=== PATIENT | female | born 1995 | race Caucasian/White ===

== ENCOUNTER 2018-07-29 22:10 | Observation (INO) | payer BC ==
[2018-07-29] MEDS ORDERED: KETOROLAC 30 MG/1 ML SDV IVP ONE (22:46)
[2018-07-29] MEDS ORDERED: ONDANSETRON 4 MG/2 ML VIAL IVP ONE (22:46)
[2018-07-29] MEDS ORDERED: NS 1,000 ML IV ONE (22:46)
--- NOTE | 2018-07-29 22:52 | EDPHY ---
H & P Stated Complaint: abd pain, vomiting Time Seen by Provider: 07/29/18 22:34 HPI/ROS: HPI The patient presents with abdominal pain which began at about 8:40 p.m. Tonight and came on fairly suddenly. The pain was initially diffuse and sharp in her lower abdomen, however now radiates throughout her abdomen and is more dull. The pain has been constant. She tried taking Tums and Pepto-Bismol with no improvement in her symptoms. She has had 2 episodes of vomiting which have caused a slight improvement in her symptoms. She has not had any fevers or chills. She had 2 normal bowel movements today. She has not had any vaginal bleeding. She does have a history of ovarian torsion requiring oophorectomy, however unsure which ovary was removed. She has a history of constipation.. REVIEW OF SYSTEMS 10 systems were reviewed and negative with the exception of the elements mentioned in the history of present illness. PMHx: History of oophorectomy, history of constipation Soc Hx: Here with her brother PHYSICAL General Appearance: Alert, no distress Eyes: Pupils equal and round no pallor or injection ENT, Mouth: Mucous membranes moist Respiratory: There are no retractions, lungs are clear to auscultation Cardiovascular: Regular rate and rhythm Gastrointestinal: Abdomen is soft and tender in periumbilical region and right lower quadrant, no masses, bowel sounds normal Neurological: A&O, moves all extremities Skin: Warm and dry, no rashes Musculoskeletal: Neck is supple non tender Extremities: symmetrical, full range of motion Psychiatric: Patient is oriented X 3, there is no agitation Source: Patient Exam Limitations: No limitations - Personal History LMP (Females 10-55): 1-7 Days Ago Current Tetanus Diphtheria and Acellular Pertussis (TDAP): Yes - Medical/Surgical History Hx Asthma: Yes Hx Chronic Respiratory Disease: No Hx Diabetes: No Hx Cardiac Disease: No Hx Renal Disease: No Hx Cirrhosis: No Hx Alcoholism: No Hx HIV/AIDS: No Hx Splenectomy or Spleen Trauma: No Other PMH: lost one ovary - Social History Smoking Status: Never smoked Constitutional: Initial Vital Signs Temperature (C) 36.8 C 07/29/18 22:14 Heart Rate 115 H 07/29/18 22:14 Respiratory Rate 20 07/29/18 22:14 Blood Pressure 114/71 07/29/18 22:14 O2 Sat (%) 97 09/21/18 22:14 Allergies/Adverse Reactions: No Known Allergies Allergy (Unverified 07/29/18 22:14) Home Medications: Medication Instructions Recorded Acetaminophen [Tylenol 325mg (*)] 650 mg PO Q4HRS PRN tab 07/30/18 Hydrocodone/APAP 5/325 [Vevay 1 - 2 tab PO Q4HRS PRN #15 tab 07/30/18 5/325 (*)] Medical Decision Making - Diagnostics Imaging Results: Imaging Impressions Abdomen Ultrasound 07/29/18 22:47 Impression: Acute appendicitis. Findings and recommendations discussed with Emergency Department physician, Maeve Wright MD at 23:25 hour, 07/29/2018. Final report concurs with initial preliminary interpretation. Imaging: Discussed imaging studies w/ cold roll inspector Radiologist, I viewed and interpreted images myself Differential Diagnosis: This is a 22-year-old female, history of unilateral oophorectomy, laterality unknown, presents with several hours of lower abdominal pain associated with vomiting. Differential diagnosis includes appendicitis, ovarian torsion, constipation, gastroenteritis. In the emergency department, labs were obtained which did demonstrate leukocytosis and transaminitis. Ultrasound of her right lower quadrant demonstrated findings consistent with acute appendicitis. I consulted with Dr. Stubbs who is the on-call general surgeon. He will see the patient. I have ordered antibiotics for the patient. The patient will be admitted to the hospital with plans for the operating room later today. She was updated on this plan. - Data Points Laboratory Results: Laboratory Results 07/29/18 23:00 07/29/18 23:00 07/29/18 07/29/18 07/29/18 23:33 23:00 23:00 WBC RBC Hgb Hct MCV MCH MCHC RDW Plt Count MPV Neut % (Auto) Lymph % (Auto) [place] % (Auto) Eos % (Auto) Baso % (Auto) Nucleat RBC Rel Count Absolute Neuts (auto) Absolute Lymphs (auto) Absolute Monos (auto) Absolute Eos (auto) Absolute Basos (auto) Absolute Nucleated RBC Immature Gran % Immature Gran # Sodium 137 mEq/L mEq/L (135-145) Potassium 3.9 mEq/L mEq/L (3.3-5.0) Chloride 102 mEq/L mEq/L (97-110) Carbon Dioxide 25 mEq/l mEq/l (22-31) Anion Gap 10 mEq/L mEq/L (8-16) BUN 13 mg/dL mg/dL (7-23) Creatinine 0.6 mg/dL mg/dL (0.6-1.0) Estimated GFR > 60 Glucose 78 mg/dL mg/dL (70-100) Calcium 9.9 mg/dL mg/dL (8.5-10.4) Total Bilirubin 0.6 mg/dL mg/dL (0.1-1.4) Conjugated Bilirubin 0.1 mg/dL mg/dL (0.0-0.5) Unconjugated Bilirubin 0.5 mg/dL mg/dL (0.0-1.1) AST 47 IU/L H IU/L (14-46) ALT 76 IU/L H IU/L (9-52) Alkaline Phosphatase 90 IU/L IU/L (38-126) Total Protein 7.6 g/dL g/dL (6.3-8.2) Albumin 4.6 g/dL g/dL (3.5-5.0) Beta HCG, Qual NEGATIVE Urine Color YELLOW Urine Appearance CLEAR Urine pH 8.0 H (5.0-7.5) Ur Specific [place] 1.013 (1.002-1.030) Urine Protein NEGATIVE (NEGATIVE) Urine Ketones TRACE H (NEGATIVE) Urine Blood NEGATIVE (NEGATIVE) Urine Nitrate NEGATIVE (NEGATIVE) Urine Bilirubin NEGATIVE (NEGATIVE) Urine Urobilinogen NEGATIVE EU EU (0.2-1.0) Ur Leukocyte Esterase NEGATIVE (NEGATIVE) Urine Glucose NEGATIVE (NEGATIVE) 07/29/18 23:00 WBC 21.85 10^3/uL H 10^3/uL (3.80-9.50) RBC 5.17 10^6/uL 10^6/uL (4.18-5.33) Hgb 13.7 g/dL g/dL (12.6-16.3) Hct 39.1 % % (38.0-47.0) MCV 75.6 fL L fL (81.5-99.8) MCH 26.5 pg L pg (27.9-34.1) MCHC 35.0 g/dL g/dL (32.4-36.7) RDW 12.8 % % (11.5-15.2) Plt Count 357 10^3/uL 10^3/uL (150-400) MPV 9.7 fL fL (8.7-11.7) Neut % (Auto) 80.5 % H % (39.3-74.2) Lymph % (Auto) 13.0 % L % (15.0-45.0) [place] % (Auto) 4.3 % L % (4.5-13.0) Eos % (Auto) 1.4 % % (0.6-7.6) Baso % (Auto) 0.4 % % (0.3-1.7) Nucleat RBC Rel Count 0.0 % % (0.0-0.2) Absolute Neuts (auto) 17.61 10^3/uL H 10^3/uL (1.70-6.50) Absolute Lymphs (auto) 2.84 10^3/uL 10^3/uL (1.00-3.00) Absolute Monos (auto) 0.94 10^3/uL H 10^3/uL (0.30-0.80) Absolute Eos (auto) 0.30 10^3/uL 10^3/uL (0.03-0.40) Absolute Basos (auto) 0.08 10^3/uL 10^3/uL (0.02-0.10) Absolute Nucleated RBC 0.00 10^3/uL 10^3/uL (0-0.01) Immature Gran % 0.4 % % (0.0-1.1) Immature Gran # 0.08 10^3/uL 10^3/uL (0.00-0.10) Sodium Potassium Chloride Carbon Dioxide Anion Gap BUN Creatinine Estimated GFR Glucose Calcium Total Bilirubin Conjugated Bilirubin Unconjugated Bilirubin AST ALT Alkaline Phosphatase Total Protein Albumin Beta HCG, Qual Urine Color Urine Appearance Urine pH Ur Specific [place] Urine Protein Urine Ketones Urine Blood Urine Nitrate Urine Bilirubin Urine Urobilinogen Ur Leukocyte Esterase Urine Glucose Medications Given: Discontinued Medications Bupivacaine HCl/Epinephrine Bitart (Bupivacaine/Epi) Confirm Administered Dose 30 ml .ROUTE .STK-MED ONE Stop: 07/30/18 00:08 Last Admin: 07/30/18 01:17 Dose: 30 ml Sodium Chloride (Ns) 1,000 mls @ 0 mls/hr IV EDNOW ONE; Wide Open PRN Reason: Protocol Stop: 07/29/18 22:47 Last Admin: 07/29/18 23:13 Dose: 1,000 mls Ceftriaxone Sodium/Dextrose (Rocephin 1 Gm (Premix)) 50 mls @ 100 mls/hr IV EDNOW ONE PRN Reason: Protocol Stop: 07/30/18 00:15 Last Admin: 07/29/18 23:46 Dose: 50 mls Metronidazole/Sodium Chloride (Flagyl 500 Mg (Premix)) 100 mls @ 100 mls/hr IV EDNOW ONE PRN Reason: Protocol Stop: 07/30/18 00:46 Last Admin: 07/30/18 00:20 Dose: 100 mls Ketorolac Tromethamine (Toradol) 15 mg IVP EDNOW ONE Stop: 07/29/18 22:47 Last Admin: 07/29/18 23:14 Dose: 15 mg Ondansetron HCl (Zofran) 4 mg IVP EDNOW ONE Stop: 07/29/18 22:47 Last Admin: 07/29/18 23:13 Dose: 4 mg Departure - Departure Disposition: [facility] Inpatient Acute Clinical Impression: Acute appendicitis Qualifiers: Acute appendicitis type: with generalized peritonitis Qualified Code(s): K35.2 - Acute appendicitis with generalized peritonitis; K35.0 - Acute appendicitis with generalized peritonitis Condition: Good
[2018-07-29 23:17] LABS: PLATELET COUNT 357 10^3/uL (150-400)
[2018-07-30] MEDS ORDERED: BUPIVACAINE/EPI 0.5% 30 ML SDV ONE (00:07)
[2018-07-30] MEDS ORDERED: HYDROCODONE/APAP 5/325 TAB PO PRN (00:21)
[2018-07-30] MEDS ORDERED: HYDROmorphONE/DILAUDID 1 MG/ML INJ IVP PRN (00:21)
[2018-07-30] MEDS ORDERED: ONDANSETRON 4 MG/2 ML VIAL IVP PRN ×2 (00:21→01:44)
[2018-07-30] MEDS ORDERED: ACETAMINOPHEN 325 MG TAB PO PRN (00:21)
[2018-07-30] MEDS ORDERED: LR 1,000 ML IV SCH (00:30)
--- NOTE | 2018-07-30 00:32 | POSTOPPROG ---
Post Op Note Date of Operation: 07/30/18 Surgeon: Aguila Stubbs Anesthesiologist: Leroy Almendarez Anesthesia: GET(General Endotracheal) Pre-op Diagnosis: Acute appendicitis Post-op Diagnosis: Same Procedure: Lap Appy Findings: suppurative appendix Inf/Abcess present in the surg proc area at time of surgery?: Yes Depth: Organ Space EBL: Minimal Complications: no immediate Specimen(s): appendix
[2018-07-30] MEDS ORDERED: METOCLOPRAMIDE 10 MG/2 ML VIAL ONE (00:50)
[2018-07-30] MEDS ORDERED: DEXAMETHASONE 4 MG/ML VIAL ONE ×2 (00:50)
[2018-07-30] MEDS ORDERED: LIDOCAINE 2% 100 MG/5 ML SYR ONE (00:50)
[2018-07-30] MEDS ORDERED: fentaNYL 250 MCG/5 ML INJ ONE (00:50)
[2018-07-30] MEDS ORDERED: PROPOFOL 200 MG/20 ML VIAL ONE (00:50)
[2018-07-30] MEDS ORDERED: ROCURONIUM 50 MG/5 ML VIAL ONE (00:50)
--- NOTE | 2018-07-30 01:00 | GHP ---
DATE OF ADMISSION: 07/30/2018 REASON FOR EVALUATION: Appendicitis. REQUESTING PHYSICIAN: Maeve Wright M.D. INDICATIONS: 22-year-old healthy female with a 1-day history of sudden onset of epigastric pain with gradual localization starting approximately 8:30 this evening while eating at the Med. Multiple episodes of nausea and vomiting. No diarrhea. Associated chills. No fevers. One prior history of similar complaints, age 17, related to an ovarian torsion. This required RIGHT oophorectomy at that time. She denies similar intermenstrual-type pains. She presented to the emergency room because of worsening symptoms. She was found to have noncompressible tubular structure in the right lower quadrant on ultrasonography with the exam consistent with appendicitis. Surgery has been requested for further recommendations. PAST MEDICAL HISTORY: Asthma. PAST SURGICAL HISTORY: Laparoscopic RIGHT oophorectomy, tonsillectomy with adenoidectomy. MEDICATIONS: Oral contraceptives. ALLERGIES: No known drug allergies. SOCIAL HISTORY: No significant alcohol or tobacco. She is a [employer]. FAMILY HISTORY: Notable for multiple members with acute appendicitis. REVIEW OF SYSTEMS: Negative 12-point review other than acute GI complaints. PHYSICAL EXAM: Patient is alert, appropriate, comfortable. VITAL SIGNS: Temperature 36.8, blood pressure 114/70, heart rate 115, respirations 20. HEENT : Anicteric. No cervical lymphadenopathy. HEART: Regular. LUNGS: Clear without wheezes. ABDOMEN: Soft, with focal right lower quadrant tenderness with mild guarding. Positive Rovsing sign. Positive obturator sign. Negative psoas sign. EXTREMITIES: Without edema. NEUROLOGIC: Alert and appropriate. SKIN: Without rashes. LABORATORY DATA: White count 22, hemoglobin 14, platelets 360. Electrolytes within reference range. Liver enzymes with mild transaminitis with AST 47, ALT 76. test negative. Urinalysis unremarkable. Right lower quadrant ultrasonography with a noncompressible tubular structure measuring up to 12 mm with free fluid. IMPRESSION: Early appendicitis. PLAN: Laparoscopic appendectomy. Risks and benefits were explained, including bleeding, infection, open conversion, as well as alternative diagnoses. All questions were answered. She desires to proceed. /[id number]/MODL MTDD
[2018-07-30] MEDS ORDERED: NEOSTIGMINE METHYLSULFATE 5 MG/5 ML SYR ONE (01:15)
[2018-07-30] MEDS ORDERED: GLYCOPYRROLATE 0.2 MG/1 ML VIAL ONE ×2 (01:15)
--- NOTE | 2018-07-30 01:43 | PDANEPAE ---
ANE Past Medical History - Pulmonary History Hx Oxygen in Use at Home: No - Endocrine History Hx Diabetes: No ANE Review of Systems Review of Systems: ANE Patient History - Allergies Allergies/Adverse Reactions: No Known Allergies Allergy (Unverified 07/29/18 22:14) - NPO status NPO Since - Liquids (Date): 07/29/18 NPO Since - Liquids (Time): 22:00 NPO Since - Solids (Date): 07/29/18 NPO Since - Solids (Time): 20:00 - Smoking Hx Smoking Status: Never smoked ANE Labs/Vital Signs - Labs Result Diagrams: 07/29/18 23:00 07/29/18 23:00 - Vital Signs Blood Pressure: 121/76 Heart Rate: 66 Respiratory Rate: 16 O2 Sat (%): 96 Height: 157.48 cm Weight: 63.503 kg ANE Physical Exam - Airway Neck exam: FROM Mallampati Score: Class 2 Mouth exam: normal dental/mouth exam - Pulmonary Pulmonary: no respiratory distress - Cardiovascular Cardiovascular: regular rate and rhythym - ASA Status ASA Status: II ANE Anesthesia Plan Anesthesia Plan: general endotracheal anesthesia
[2018-07-30] MEDS ORDERED: fentaNYL 100 MCG/2 ML INJ IVP PRN (01:44)
[2018-07-30] MEDS ORDERED: ALBUTEROL 3 ML DEYVIAL IH PRN (01:44)
[2018-07-30] MEDS ORDERED: NALOXONE HCL 0.4 MG/ML INJ IVP PRN (01:44)
--- NOTE | 2018-07-30 01:44 | POSTANESTH ---
Post Anesthetic Evaluation Cardiovascular Status: Similar to Pre-Op Cond Respiratory Status: Similar to Pre-op Cond. Level of Consciousness/Mental Status: Alert and Oriented Pain Control: Adequate, Prn Tx Ordered Nausea/Vomiting Control: Adequate, Prn Tx Ordered Complications Possibly Related to Anesthesia: None Noted
--- NOTE | 2018-07-30 02:00 | GOP ---
DATE OF OPERATION: 07/30/2018 SURGEON: Aguila Stubbs MD ANESTHESIA: General. ANESTHESIOLOGIST: Dr. Almendarez. PREOPERATIVE DIAGNOSIS: Acute appendicitis. POSTOPERATIVE DIAGNOSIS: Acute appendicitis. PROCEDURE PERFORMED: Laparoscopic appendectomy. FINDINGS: Suppurative appendicitis. 22-year-old healthy female with acute appendicitis. She is undergoing a laparoscopic appendectomy at this time. Risks and benefits were explained including bleeding, infection, open conversion, as well as alternative diagnoses. All questions were answered. She desires to proceed. DESCRIPTION OF PROCEDURE: After general anesthesia was induced, the abdomen was pre-injected with 0.5% Marcaine with epinephrine. A vertical infraumbilical cutdown was created. Two prior incisions were re-utilized in the hypogastrium as well as left lower quadrant and 5 mm trocars were placed at these sites. The appendix was acutely thickened with suppuration without evidence of perforation coursing into the pelvis. The appendix was easily elevated up in the operative field. The thickened mesoappendix was divided with Harmonic Scalpel. The base was transected flush with the cecum with an endoscopic YARI stapler. The specimen was brought through the umbilical port site intact using EndoCatch pouch. Satisfactory hemostasis was assured. Murky fluid was removed from the pelvis. A normal remaining left ovary was present. The patient's right ovary had previously been removed. Satisfactory hemostasis was assured. Trocars were removed under direct visualization. The infraumbilical midline fascia was closed with a running Vicryl suture. The wounds were closed with Monocryl suture followed by Dermabond. The patient was taken to recovery uneventfully. /[id number]/MODL MTDD
[2018-07-30] MEDS ORDERED: KETOROLAC 15 MG/1 ML SDV IVP SCH (06:00)
--- NOTE | 2018-07-30 07:36 | SOAPPROG ---
SOAP Progress Note Assessment/Plan: Assessment:no overnight issues. comfortable. abd soft. incis clean. home today. Plan: 07/30/18 07:35 Objective: Vital Signs Temp Pulse Resp BP Pulse Ox 36.8 C 90 16 112/70 94 07/30/18 05:15 07/30/18 05:15 07/30/18 05:15 07/30/18 05:15 07/30/18 05:15 07/29/18 07/30/18 07/31/18 05:59 05:59 05:59 Intake Total 1400 Output Total 700 500 Balance 700 -500 ICD10 Worksheet Patient Problems: Problems Problem Status Onset Acute appendicitis Acute Appendicitis Acute
[2018-07-30 08:43] VITALS: BP 105/70
[2018-07-30] MEDS ORDERED: TDAP ADULT 0.5 ML INJ (BOOSTRIX) IM ONE ×2 (09:30→11:30)
== END 2018-07-30 11:30 | disposition home or self-care (01) ==
LOC: FOB 07-30 02:19
PROVIDERS: ADMIT Surgery; ATTEND Surgery
PROC: 0DTJ4ZZ Resection of Appendix, Percutaneous Endoscopic Approach (ICD-10-PCS; principal; 2018-07-29)
DX: K35.80 Unspecified acute appendicitis (principal); E86.9 Volume depletion, unspecified; Z23 Encounter for immunization
CPT/HCPCS: 44970; 76705; 90471; 96361; 96365; 96366; 96375; 99285; G0378; G0008; J0696; J1100; J1885; J2001; J2405; J2704; J2710; J2765; J3010